=== PATIENT | female | born 2000 | race Caucasian/White ===

== ENCOUNTER 2024-11-17 10:22 | Emergency (ER) | payer SELFPAY ==
[~2024-11-17] VITALS: Ht 154.9 cm; Wt 55.8 kg
[2024-11-17] MEDS ORDERED: Bactrim Ds Tab1 EACH PO (10:39)
[2024-11-17 10:56] LABS: Source, Urine Clean Catch
[2024-11-17 11:07] LABS: Appearance, Urine Hazy (Clear); Bilirubin, Urine Neg (Neg); Blood, Urine Neg (Neg); Color, Urine Yellow (P-Yellow); Glucose Qualitative, Urine Neg (Neg); Ketones, Urine Neg (Neg); Leukocyte Esterase, Urine 1+ (Neg); Nitrite, Urine Neg (Neg); Protein, Urine Neg (Neg); Specific Gravity, Urine 1.015 (1.003-1.022); Urobilinogen, Urine NORM (Normal)
[2024-11-17 11:32] LABS: Bacteria Many /hpf; Red Blood Cells, Urine 0-2 /hpf (0-2); Squamous Epithelial Cells Many /hpf (Few); White Blood Cells, Urine 0-2 /hpf (0-5)
[2024-11-17 11:33] LABS: Mucus Light (0-Heavy)
== END 2024-11-17 11:26 | disposition home or self-care (01) ==
LOC: ER 10:22
PROVIDERS: Physician Assistant
DX: L02.512 Cutaneous abscess of left hand (principal); Z59.89 Other problems related to housing and economic circumstances; Z79.2 Long term (current) use of antibiotics
CPT/HCPCS: 81001; 87086; 99283